=== PATIENT | female | born 1935 | race Caucasian/White ===

== ENCOUNTER → 2020-12-05 | Outpatient (CLI) | payer MEDICARE, OTHER ==
[2020-12-05 18:37] LABS: BILIRUBIN,URINE NEGATIVE (NEGATIVE); CLARITY,URINE CLEAR; COLOR,URINE YELLOW; GLUCOSE, URINE (UA) NEGATIVE (NEGATIVE); KETONES,URINE NEGATIVE (NEGATIVE); NITRITE,URINE NEGATIVE (NEGATIVE); PH,URINE 6.5 (5-9); PROTEIN,URINE NEGATIVE (NEGATIVE)
[2020-12-05 18:38] LABS: BACTERIA,URINE NEGATIVE /HPF; CALCIUM OXALATE CRYSTALS,UR FEW /LPF; LEUKOCYTE ESTERASE ,URINE NEGATIVE (NEGATIVE); RENAL EPITHELIAL CELLS,URINE RARE /HPF; SQUAMOUS EPITHELIAL CELL,UR 0-2 /HPF
== END ==
LOC: LAB FS 18:04
PROVIDERS: ATTEND Emergency Medicine
DX: M54.5 Low back pain (principal); R53.1 Weakness
CPT/HCPCS: 81000

== ENCOUNTER → 2023-01-15 | Outpatient (CLI) | payer MEDICARE, OTHER ==
[2023-01-15 15:05] LABS: BILIRUBIN,URINE NEGATIVE (NEGATIVE); COLOR,URINE YELLOW; GLUCOSE, URINE (UA) NEGATIVE (NEGATIVE); KETONES,URINE NEGATIVE (NEGATIVE); LEUKOCYTE ESTERASE ,URINE TRACE (NEGATIVE); NITRITE,URINE POSITIVE (NEGATIVE); PROTEIN,URINE NEGATIVE (NEGATIVE)
[2023-01-15 15:13] LABS: CLARITY,URINE CLOUDY
[2023-01-15 15:14] LABS: BACTERIA,URINE LARGE /HPF; CALCIUM OXALATE CRYSTALS,UR LARGE /LPF; WBC,URINE 50-100 /HPF
== END ==
LOC: LABNPT 14:38
PROVIDERS: ATTEND Emergency Medicine
DX: R45.1 Restlessness and agitation (principal)
CPT/HCPCS: 81000; 87088

== ENCOUNTER 2023-04-05 12:08 | Emergency (ER) | payer MEDICARE, OTHER ==
--- NOTE | 2023-04-05 12:13 | ED Abdominal Pain ---
General Chief Complaint: Abdominal/GI Problems Stated Complaint: ABD PAIN Source of Information: Patient, Family Exam Limitations: No Limitations History of Present Illness Date Seen by Provider: April 05, 2023 Time Seen by Provider: 12:10 Initial Comments 87-year-old female with past medical history of multiple prior abdominal surgeries complicated by previous bowel obstructions and adhesions coming in with daughter due to abdominal pain. Started having pain Wednesday and having some nausea at that time with some dry heaving last night. Typically when this happens they are able to handle it at home with some mineral oil and getting the bowels moving again. She did pass some flatus last night and this morning. La st bowel movement is unsure, potentially 48 hours ago. The patient also had a fall this morning at her assisted living. Did not hit her head, does not take blood thinners. She does not have a headache. Allergies and Home Medications Allergies Coded Allergies: Penicillins (Verified Allergy, Unknown, 04/05/23) morphine (Verified Adverse Reaction, Unknown, Nausea/Vomiting, 04/05/23) Patient Home Medication List Home Medication List Reviewed: Yes Review of Systems Review of Systems Constitutional: No fever EENTM: No Symptoms Reported Respiratory: No Symptoms Reported Cardiovascular: No Symptoms Reported Gastrointestinal: See HPI Genitourinary: No Symptoms Reported Musculoskeletal: no symptoms reported Skin: no symptoms reported Psychiatric/Neurological: No Symptoms Reported Endocrine: No Symptoms Reported Past Rcaocer-Lswgsm-Yidexf Hx Patient Social History Tobacco Use?: No Past Medical History Surgery/Hospitalization HX: Liposuction, hysterectomy, lysis of adhesions, partial bowel resection Surgeries: Yes Physical Exam Vital Signs Vital Signs - First Documented 04/05/23 12:14 Temp 36.7 Pulse 90 Resp 18 B/P (MAP) 135/72 (93) Pulse Ox 98 O2 Delivery Room Air Capillary Refill : Height/Weight/BMI Height: '" Weight: lbs. oz. kg; BMI Method: General Appearance: WD/WN, no apparent distress HEENT: PERRL/EOMI, normal ENT inspection, pharynx normal Neck: non-tender, full range of motion, supple, normal inspection Respiratory: chest non-tender, lungs clear, normal breath sounds, no respiratory distress, no accessory muscle use Cardiovascular: regular rate, rhythm, no edema, no murmur Gastrointestinal: normal bowel sounds, distended (Mild); No guarding, No rebound; tenderness Extremities: normal range of motion, non-tender, normal inspection, no pedal edema, no calf tenderness, normal capillary refill Back: normal inspection, no CVA tenderness Neurologic/Psychiatric: no motor/sensory deficits, alert, normal mood/affect Skin: normal color, warm/dry Focused Exam Lactate Level 04/05/23 12:20: Lactic Acid Level 1.23 Lactic Acid Level Laboratory Tests Test 04/05/23 12:20 Lactic Acid Level 1.23 MMOL/L (0.50-2.00) Progress/Results/Core Measures Results/Orders Lab Results Laboratory Tests Test 04/05/23 12:11 04/05/23 12:20 Range/Units Urine Color YELLOW Urine Clarity TURBID Urine pH 5.5 5-9 Urine Specific [place] 1.025 H 1.016-1.022 Urine Protein TRACE H NEGATIVE Urine Glucose (UA) NEGATIVE NEGATIVE Urine Ketones 1+ H NEGATIVE Urine Nitrite NEGATIVE NEGATIVE Urine Bilirubin 1+ H NEGATIVE Urine Urobilinogen 0.2 < = 1.0 MG/DL Urine Leukocyte Esterase NEGATIVE NEGATIVE Urine RBC (Auto) NEGATIVE NEGATIVE Urine RBC NONE /HPF Urine WBC 2-5 /HPF Urine Squamous Epithelial Cells 0-2 /HPF Urine Crystals PRESENT H /LPF Urine Amorphous Sediment MOD AMAURY URATES H /LPF Urine Bacteria MODERATE H /HPF Urine Casts PRESENT /LPF Urine Hyaline Casts 5-10 H /LPF Urine Mucus SMALL H /LPF Urine Culture Indicated YES White Blood Count 4.0 L 4.3-11.0 10^3/uL Red Blood Count 4.07 3.80-5.11 10^6/uL Hemoglobin 13.4 11.5-16.0 g/dL Hematocrit 39 35-52 % Mean Corpuscular Volume 97 80-99 fL Mean Corpuscular Hemoglobin 33 25-34 pg Mean Corpuscular Hemoglobin Concent 34 32-36 g/dL Red Cell Distribution Width 13.3 10.0-14.5 % Platelet Count 330 130-400 10^3/uL Mean Platelet Volume 8.6 L 9.0-12.2 fL Immature Granulocyte % (Auto) 0 % Neutrophils (%) (Auto) 58 42-75 % Lymphocytes (%) (Auto) 22 12-44 % Monocytes (%) (Auto) 17 H 0-12 % Eosinophils (%) (Auto) 3 0-10 % Basophils (%) (Auto) 1 0-10 % Neutrophils # (Auto) 2.3 1.8-7.8 10^3/uL Lymphocytes # (Auto) 0.9 L 1.0-4.0 10^3/uL Monocytes # (Auto) 0.7 0.0-1.0 10^3/uL Eosinophils # (Auto) 0.1 0.0-0.3 10^3/uL Basophils # (Auto) 0.0 0.0-0.1 10^3/uL Immature Granulocyte # (Auto) 0.0 0.0-0.1 10^3/uL Prothrombin Time 12.9 12.2-14.7 SEC INR Comment 0.9 0.8-1.4 Sodium Level 132 L 135-145 MMOL/L Potassium Level 4.2 3.6-5.0 MMOL/L Chloride Level 97 L 98-107 MMOL/L Carbon Dioxide Level 23 21-32 MMOL/L Anion Gap 12 5-14 MMOL/L Blood Urea Nitrogen 22 H 7-18 MG/DL Creatinine 0.63 0.60-1.30 MG/DL Estimat Glomerular Filtration Rate 85 BUN/Creatinine Ratio 35 Glucose Level 133 H 70-105 MG/DL Lactic Acid Level 1.23 0.50-2.00 MMOL/L Calcium Level 8.8 8.5-10.1 MG/DL Corrected Calcium 8.8 8.5-10.1 MG/DL Total Bilirubin 0.5 0.1-1.0 MG/DL Aspartate Amino Transf (AST/SGOT) 38 H 5-34 U/L Alanine Aminotransferase (ALT/SGPT) 59 H 0-55 U/L Alkaline Phosphatase 75 40-136 U/L C-Reactive Protein 9.25 H <0.50 MG/DL Total Protein 6.7 6.4-8.2 GM/DL Albumin 4.0 3.2-4.5 GM/DL Lipase 12 8-78 U/L My Orders Orders - MAYKEL OROURKE MD Cbc With Automated Diff (04/05/23 12:11) Comprehensive Metabolic Panel (04/05/23 12:11) Lipase (04/05/23 12:11) Protime With Inr (04/05/23 12:11) Ua Culture If Indicated (04/05/23 12:11) Crp Fs (04/05/23 12:11) Lactic Acid Analyzer (04/05/23 12:13) Ct Abdomen/Pelvis W (04/05/23 12:13) Ns Iv 500 Ml (Sodium Chloride 0.9%) (04/05/23 12:46) Ondansetron Injection (Zofran Injectio (04/05/23 13:00) Ct Head Wo (04/05/23 13:04) Urine Culture (04/05/23 12:11) Iohexol Injection (Omnipaque 350 Mg/Ml 1 (04/05/23 13:30) Received Contrast (Hold Metformin- Contr (04/05/23 13:30) Ns (Ivpb) (Sodium Chloride 0.9% Ivpb Bag (04/05/23 13:30) Medications Given in ED Current Medications Medications Dose Ordered Sig/Clarisse Route Start Time Stop Time Status Last Admin Dose Admin Iohexol 100 ml ONCE ONCE IV 04/05/23 13:30 04/05/23 13:31 DC 04/05/23 13:39 75 ML Ondansetron HCl 4 mg ONCE ONCE IVP 04/05/23 13:00 04/05/23 13:01 DC 04/05/23 12:51 4 MG Sodium Chloride 100 ml ONCE ONCE IV 04/05/23 13:30 04/05/23 13:31 DC 04/05/23 13:39 100 ML Vital Signs/I&O 04/05/23 12:14 Temp 36.7 Pulse 90 Resp 18 B/P (MAP) 135/72 (93) Pulse Ox 98 O2 Delivery Room Air Progress Progress Note : Progress Note 87-year-old female with above history coming in due to abdominal pain. ABCs were intact and vitals were stable on presentation. Physical exam with a tender abdomen that is mildly distended. An IV was placed and basic labs were obtained including lactic acid. Her white blood cell count is 4 which is actually slightly low, normal lactic acid, normal creatinine. She was given some gentle IV fluids. She appeared comfortable so was not given pain medication although she was offered. CT abdomen pelvis on my interpretation with some distended loops of bowel. The official read showed moderate distention and some of the bowel with no transition point. In early versus very low-grade bowel obstruction cannot be excluded. I discussed the case with the patient and her daughter, and they are interested in going on hospice very soon. I did offer admission and surgical evaluation. They do not want any significant interventions, and prefer to go home and take care of this. I will send a prescription for nausea medicines as well as hydrocodone. I believe the patient is stable for discharge with outpatient follow-up. She was sent home with [employer] [employer] return precautions Diagnostic Imaging Diagonstic Imaging: Xray, CT (head and abd/pelvis) Comments NAME: NANO SEN [facility] REC#: [id number] PT STATUS: REG ER : 1935 PHYSICIAN: MAYKEL OROURKE MD ADMIT DATE: 04/05/23/ER FS Draft Date of Exam:04/05/23 CT HEAD WO Clinical indication: Patient status post fall. Exam: Axial CT scan of the brain without IV contrast with coronal and sagittal reformatted images. Auto Exposure Controls were utilized during the CT exam to meet ALARA standards for radiation dose reduction. Comparison: None Findings: There is no evidence of acute cerebral infarct, intracranial hemorrhage, or gross mass effect. There is diffuse brain parenchymal volume loss including the temporal lobes. There are diffuse patchy confluent areas of low-attenuation white matter changes throughout both cerebral hemispheres and periventricular regions, likely representing chronic small vessel ischemic disease and leukoaraiosis. There is normal jha-white matter distinction. There is no significant midline shift or herniation. There is calcification involving the falx cerebri and tentorium again seen. There is no evidence of hydrocephalus. The basal cisterns are unremarkable. The skull, extracranial soft tissue, and orbits are unremarkable. The paranasal sinuses are unremarkable. Temporal bones show no significant abnormality. Impression: 1: There is no definite CT evidence of interval acute cerebral infarction, intracranial hemorrhage, or mass seen. The diffuse low attenuation changes throughout the brain parenchyma may possibly obscure more subtle findings. If there is clinical concern for acute cerebral infarction, MRI of the brain would better evaluate. 2: There is diffuse low attenuation white matter changes throughout both cerebral hemispheres and periventricular regions which may be related to chronic small vessel ischemic disease and leukoaraiosis. Dictated on workstation # [id number] Dict: 04/05/23 1359 Trans: 04/05/23 1407 CV [id number] Interpreted by: ALBERTO MENESES MD Electronically signed by: [facility]. [place], [place] NAME: NANO SEN [facility] REC#: [id number] PT STATUS: REG ER : 1935 PHYSICIAN: MAYKEL OROURKE MD ADMIT DATE: 04/05/23/ER FS Draft Date of Exam:04/05/23 CT ABDOMEN/PELVIS W PROCEDURE: CT abdomen and pelvis with contrast. TECHNIQUE: Multiple contiguous axial images were obtained through the abdomen and pelvis after administration of intravenous contrast. Auto Exposure Controls were utilized during the CT exam to meet ALARA standards for radiation dose reduction. All CT scans use one or more of the following dose optimizing techniques: automated exposure control, MA and/or KvP adjustment based on patient size and exam type or iterative reconstruction. INDICATION: Abdominal pain. History of small bowel obstructions. COMPARISON: None. FINDINGS: Mild atelectasis and/or scarring in the lung bases. Simple-appearing probable cyst in the right hepatic lobe measuring up to 1.3 cm. The gallbladder, pancreas, spleen, adrenals, kidneys, collecting systems and bladder demonstrate no acute findings. Hysterectomy. The appendix is not well seen and may be surgically absent. No suspicious inflammatory findings in the region of the cecum. No free intraperitoneal air. There is a small amount of free fluid in the left abdomen associated with both the descending colon and a couple loops of small bowel. There is a short segment of adjacent small bowel wall thickening versus underdistention. Moderately dilated mid and proximal small bowel. No focal transition point. No lymphadenopathy. No acute osseous findings. IMPRESSION: Several moderately dilated loops of proximal and mid small bowel without a focal transition point identified. There is a small amount of free fluid in the left abdomen adjacent to both small bowel loops and the descending colon. There may be an associated short segment of small bowel wall thickening versus underdistention. An early or low-grade small bowel obstruction is not excluded. No free intraperitoneal air. No pneumatosis or portal venous gas. Dictated on workstation # [id number] Dict: 04/05/23 1422 Trans: 04/05/23 1431 CV [id number] Interpreted by: LETTY ALEJANDRE MD Electronically signed by: Departure Impression Primary Impression: Partial bowel obstruction Qualified Codes: K56.51 - Intestinal adhesions [bands], with partial obstruction Disposition: 01 HOME, SELF-CARE Condition: Stable Departure-Patient Inst. Decision time for Depature: 14:50 Referrals: KHUSHI POSADA DO (PCP) Primary Care Physician Patient Instructions: Small Bowel Obstruction (DC) Add. Discharge Instructions: There were some moderately distended loops of bowel on the CT imaging. The radiologist read this as potentially a low-grade versus early bowel obstruction. I recommend bowel rest, continued bowel regimen to try to encourage bowel movements, and nausea medicines as needed. You can also give her hydrocodone as needed if pain is severe. As we discussed, we would recommend going forward with hospice care to help with her comfort. Scripts Hydrocodone/Acetaminophen (Hydrocodone-Acetamin 5-325 mg) 5 Mg-325 Mg Tablet 1 TAB PO Q6H PRN for PAIN-MODERATE (5-7) for 3 Days, #12 TAB Prov: MAYKEL OROURKE MD 04/05/23 Ondansetron (Ondansetron Odt) 4 Mg Tab.rapdis 4 MG SL Q6H PRN for NAUSEA/VOMITING for 5 Days, #20 TAB Prov: MAYKEL OROURKE MD 04/05/23 Work/School Note: Family Work Note Patient Received Medical Care In the Emergency Department On: April 05, 2023 Patient Will Be Able to Return to Work/School On: April 07, 2023 MAYKEL OROURKE MD April 05, 2023 12:13
[2023-04-05 12:34] LABS: CLARITY,URINE TURBID; COLOR,URINE YELLOW; GLUCOSE, URINE (UA) NEGATIVE (NEGATIVE); KETONES,URINE 1+ (NEGATIVE); LEUKOCYTE ESTERASE ,URINE NEGATIVE (NEGATIVE); NITRITE,URINE NEGATIVE (NEGATIVE); PH,URINE 5.5 (5-9); PROTEIN,URINE TRACE (NEGATIVE)
[2023-04-05 12:41] LABS: BASOPHILS % (AUTO) 1 % (0-10); EOSINOPHILS # (AUTO) 0.1 10^3/uL (0.0-0.3); EOSINOPHILS % (AUTO) 3 % (0-10); HEMATOCRIT 39 % (35-52); HEMOGLOBIN 13.4 g/dL (11.5-16.0); LYMPHOCYTES # (AUTO) 0.9 10^3/uL (1.0-4.0); LYMPHOCYTES % (AUTO) 22 % (12-44); MEAN CORPUSCULAR HEMOGLOBIN 33 pg (25-34); MEAN CORPUSCULAR HGB CONC 34 g/dL (32-36); MEAN CORPUSCULAR VOLUME 97 fL (80-99); MEAN PLATELET VOLUME 8.6 fL (9.0-12.2); MONOCYTES # (AUTO) 0.7 10^3/uL (0.0-1.0); MONOCYTES % (AUTO) 17 % (0-12); NEUTROPHILS # (AUTO) 2.3 10^3/uL (1.8-7.8); NEUTROPHILS % (AUTO) 58 % (42-75); PLATELET COUNT 330 10^3/uL (130-400)
[2023-04-05] MEDS ORDERED: NS IV 500 ML 500 ML IV STA (12:46)
[2023-04-05] MEDS ORDERED: ONDANSETRON 4 MG/2 ML (SDV) Z0FRAN IVP ONE (13:00)
[2023-04-05 13:02] LABS: INR 0.9 (0.8-1.4); PROTHROMBIN TIME PATIENT 12.9 SEC (12.2-14.7)
[2023-04-05 13:03] LABS: BILIRUBIN,TOTAL 0.5 MG/DL (0.1-1.0); CALCIUM 8.8 MG/DL (8.5-10.1); CREATININE SERUM 0.63 MG/DL (0.60-1.30); POTASSIUM 4.2 MMOL/L (3.6-5.0); TOTAL PROTEIN 6.7 GM/DL (6.4-8.2)
[2023-04-05 13:04] LABS: BILIRUBIN,URINE 1+ (NEGATIVE)
[2023-04-05 13:05] LABS: SQUAMOUS EPITHELIAL CELL,UR 0-2 /HPF
[2023-04-05 13:06] LABS: BACTERIA,URINE MODERATE /HPF
[2023-04-05 13:07] LABS: AMORPHOUS SEDIMENT,UR MOD AMOR URATES /LPF
[2023-04-05] MEDS ORDERED: IOHEXOL 350 MG/ML 100 ML (OMNIPAQUE 350) VIAL IV ONE (13:30)
[2023-04-05] MEDS ORDERED: NS 100 ML (IVPB) BAG IV ONE (13:30)
[2023-04-05] MEDS ORDERED: HOLD METFORMIN - RECEIVED CONTRAST 20 ML VIAL IV SCH (13:30)
--- NOTE | 2023-04-05 14:05 | Diagnostic Imaging Report ---
Clinical indication: Patient status post fall. Exam: Axial CT scan of the brain without IV contrast with coronal and sagittal reformatted images. Auto Exposure Controls were utilized during the CT exam to meet ALARA standards for radiation dose reduction. Comparison: None Findings: There is no evidence of acute cerebral infarct, intracranial hemorrhage, or gross mass effect. There is diffuse brain parenchymal volume loss including the temporal lobes. There are diffuse patchy confluent areas of low-attenuation white matter changes throughout both cerebral hemispheres and periventricular regions, likely representing chronic small vessel ischemic disease and leukoaraiosis. There is normal jha-white matter distinction. There is no significant midline shift or herniation. There is calcification involving the falx cerebri and tentorium again seen. There is no evidence of hydrocephalus. The basal cisterns are unremarkable. The skull, extracranial soft tissue, and orbits are unremarkable. The paranasal sinuses are unremarkable. Temporal bones show no significant abnormality. Impression: 1: There is no definite CT evidence of interval acute cerebral infarction, intracranial hemorrhage, or mass seen. The diffuse low attenuation changes throughout the brain parenchyma may possibly obscure more subtle findings. If there is clinical concern for acute cerebral infarction, MRI of the brain would better evaluate. 2: There is diffuse low attenuation white matter changes throughout both cerebral hemispheres and periventricular regions which may be related to chronic small vessel ischemic disease and leukoaraiosis. Dictated by: Dictated on workstation # [id number]
--- NOTE | 2023-04-05 14:32 | Diagnostic Imaging Report ---
PROCEDURE: CT abdomen and pelvis with contrast. TECHNIQUE: Multiple contiguous axial images were obtained through the abdomen and pelvis after administration of intravenous contrast. Auto Exposure Controls were utilized during the CT exam to meet ALARA standards for radiation dose reduction. All CT scans use one or more of the following dose optimizing techniques: automated exposure control, MA and/or KvP adjustment based on patient size and exam type or iterative reconstruction. INDICATION: Abdominal pain. History of small bowel obstructions. COMPARISON: None. FINDINGS: Mild atelectasis and/or scarring in the lung bases. Simple-appearing probable cyst in the right hepatic lobe measuring up to 1.3 cm. The gallbladder, pancreas, spleen, adrenals, kidneys, collecting systems and bladder demonstrate no acute findings. Hysterectomy. The appendix is not well seen and may be surgically absent. No suspicious inflammatory findings in the region of the cecum. No free intraperitoneal air. There is a small amount of free fluid in the left abdomen associated with both the descending colon and a couple loops of small bowel. There is a short segment of adjacent small bowel wall thickening versus underdistention. Moderately dilated mid and proximal small bowel. No focal transition point. No lymphadenopathy. No acute osseous findings. IMPRESSION: Several moderately dilated loops of proximal and mid small bowel without a focal transition point identified. There is a small amount of free fluid in the left abdomen adjacent to both small bowel loops and the descending colon. There may be an associated short segment of small bowel wall thickening versus underdistention. An early or low-grade small bowel obstruction is not excluded. No free intraperitoneal air. No pneumatosis or portal venous gas. Dictated by: Dictated on workstation # [id number]
[2023-04-05] MEDS ORDERED: ACHD5005 PO (14:46)
[2023-04-05] MEDS ORDERED: ONDA4TAB11 SL (14:46)
[2023-04-05 15:25] VITALS: BP 133/68
== END 2023-04-05 15:30 | disposition home or self-care (01) ==
LOC: EDUNIT# 12:08 → ER FS 12:09
DX: K56.600 Partial intestinal obstruction, unspecified as to cause (principal); Z98.890 Other specified postprocedural states
CPT/HCPCS: 36415; 70450; 74177; 80053; 81000; 83605; 83690; 85025; 85610; 86141; 87077; 87088